=== PATIENT | female | born 1990 | race Caucasian/White ===

== ENCOUNTER → 2017-01-03 | Day surgery (SDC) | payer OTHER ==
[2017-01-03 07:26] LABS: HCT 42.2 % (37.0-47.0); HGB 14.6 g/dl (12.5-16.0); MCHC 34.6 g/dL (32.0-36.0); MCV 83.9 fL (78.0-100.0); MPV 9.3 fL (6.0-9.5); RBC 5.03 M/uL (4.20-5.40); RDW 11.6 % (11.5-14.0); WBC 6.7 K/uL (4.0-10.5)
[2017-01-03 07:43] LABS: ALBUMIN 4.8 g/dL (3.5-5.0); BILIRUBIN - TOTAL 1.1 mg/dL (0.1-1.0); CREATININE 0.8 mg/dL (0.5-1.0); GLOBULIN (CALCULATION) 3.6 g/dL (2.2-4.2); POTASSIUM 4.3 mmol/L (3.5-5.1); TOTAL PROTEIN 8.4 g/dL (6.4-8.3)
== END | disposition home or self-care (01) ==
LOC: FAS 06:13
PROVIDERS: Surgery
DX: Z12.11 Encounter for screening for malignant neoplasm of colon (principal); D64.9 Anemia, unspecified; Z79.899 Other long term (current) drug therapy; Z85.038 Personal history of other malignant neoplasm of large intestine; Z98.890 Other specified postprocedural states; Z80.0 Family history of malignant neoplasm of digestive organs; Z87.891 Personal history of nicotine dependence
CPT/HCPCS: 36415; 80053; 84703; J2704

== ENCOUNTER → 2022-01-11 | Day surgery (SDC) | payer OTHER ==
[~2022-01-11] VITALS: Ht 165.1 cm; Wt 68.5 kg
[2022-01-11 08:30] LABS: HCG (URINE) SCREEN NEGATIVE (NEGATIVE)
== END | disposition home or self-care (01) ==
LOC: FAS 07:59
PROVIDERS: Anesthesiology
DX: Z12.11 Encounter for screening for malignant neoplasm of colon (principal); D12.6 Benign neoplasm of colon, unspecified; K58.9 Irritable bowel syndrome, unspecified; K63.89 Other specified diseases of intestine; Z80.0 Family history of malignant neoplasm of digestive organs
CPT/HCPCS: 84703; J1610; J2250; J2704; J7120